=== PATIENT | male | born 1995 | race African-American/Black ===

== ENCOUNTER 2017-08-29 17:11 | Emergency (ER) | payer MEDICAID, SELFPAY ==
[2017-08-29] MEDS ORDERED: Amoxicillin/Potassium Clav 875 MG TAB ONE (18:21)
[2017-08-29] MEDS ORDERED: Oseltamivir 75 MG CAP ONE (18:21)
[2017-08-29] MEDS ORDERED: HYDROcodone/Acetaminophen 10/325 mg Tablet ONE (18:21)
== END 2017-08-29 18:30 | disposition home or self-care (01) ==
LOC: MADERS 17:11
DX: J06.9 Acute upper respiratory infection, unspecified (principal); B34.9 Viral infection, unspecified; M41.9 Scoliosis, unspecified; F17.210 Nicotine dependence, cigarettes, uncomplicated; Z79.899 Other long term (current) drug therapy
CPT/HCPCS: 99283